=== PATIENT | male | born 1945 | race Caucasian/White ===

== ENCOUNTER 2017-09-07 13:04 | Day surgery (SDC) | payer MEDICARE, BC ==
[~2017-09-07 13:04] MED LIST: ASPI81TA82 PO; CHOL1CAP6 PO; CO Q200C PO; DIGE1CAP6 PO; FISH100020 PO; GLUCTAB6 PO; LACTCAP6 PO; LOPE2 PO; LOVA20TA PO; METO25 PO; MISC1CAP2 PO; NIAC500T18 PO; PLAV75TA PO; POTA595T2 PO; PRIN5TAB PO; SUPETAB20 PO
[2017-09-07 13:50] VITALS: BP 139/82; PULSE 68; RESP 18; RESP 20; TEMP 97.6; O2SAT 97
[2017-09-07] MEDS ORDERED: LIDOCAINE HCL 1% 20 ML VIAL ONE (13:56)
[2017-09-07 14:05] VITALS: BP 135/84; PULSE 70; RESP 18; O2SAT 96
--- NOTE | 2017-09-07 14:59 | RADRPT ---
EXAM DATE/TIME: 09/07/2017 13:09 [place] COMPARISON: No previous studies available for comparison. INDICATIONS : Left thyroid nodule. MEDICAL HISTORY : Diabetic. Diverticulitis. IBS. Afib. Hypertension. SURGICAL HISTORY : Coronary stent. CABG. Hernia repair. ENCOUNTER: Initial ACUITY: 1 day PAIN SCORE: 0/10 LOCATION: Left neck ORGAN: Left thyroid lobe SPECIMENS: Four fine needle aspirate(s) submitted for pathologic evaluation. One 18 gauge core specimen was subm itted for evaluation. DEVICE: 22 gauge beveled tip needle and 18 gauge Temno core needle Post procedure scanning reveals no hematoma or other complication. The possibility does exist that the tissue obtained will be non-diagnostic. If the sample is non-juliocesar gnostic a repeat biopsy or surgical biopsy may need to be performed. TECHNIQUE: 1. Ultrasound guidance for needle biopsy. 2. fine needle aspiration biopsy 3. Core biopsy The risks, benefits and alternatives to the procedure were explained and verbal and written consent w as obtained. The site was prepped in sterile fashion. Full sterile technique was used, including ca p, mask, sterile gloves and gown and a large sterile sheet. Hand hygiene and 2% chlorhexidine and/or betadine/alcohol prep was utilized per protocol for cutaneous antisepsis. The skin and subcutaneous tissues were infiltrated with local anesthetic solution. Sterile gel and sterile probe cover were u tilized for ultrasound guidance. With the patient on the ultrasound table, images were obtained. A slightly greater than 2 cm heteroge neous mass is identified in the deep aspect of the lower lobe portion of the left thyroid. The mass i s essentially deep to the normal thyroid tissue and posterior to a homogeneously hypoechoic smaller m ass which may be a colloid cyst. The dominant mass is clearly contiguous with thyroid tissue though n ot clearly fully within the thyroid. On the off chance that this may not be a process primary to the thyroid gland, a core biopsy was obtained in addition to multiple fine needle aspirates. A needle was advanced into the identified target under direct ultrasound guidance and the number of s pecimens as above obtained and submitted for pathologic evaluation. The patient tolerated the procedure well and left the ultrasound suite in stable condition. CONCLUSION: Uncomplicated ultrasound guided needle biopsy of thyroid mass. Donny Engel MD on September 07, 2017 at 14:53 Board Certified Radiologist. This report was verified electronically.
== END 2017-09-07 14:15 | disposition home or self-care (01) ==
LOC: HRAD 13:04 → HRIP 13:06 → HRAD 14:15
PROVIDERS: ATTEND Internal Medicine
DX: E04.1 Nontoxic single thyroid nodule (principal); I10 Essential (primary) hypertension; I48.91 Unspecified atrial fibrillation; E11.9 Type 2 diabetes mellitus without complications; Z95.1 Presence of aortocoronary bypass graft
CPT/HCPCS: 10022; 76942; 88172; 88173; 88305